=== PATIENT | male | born 1965 | race Caucasian/White ===

== ENCOUNTER 2023-03-13 10:57 | Observation (INO) | payer MEDICARE ==
[~2023-03-13] VITALS: Ht 167.6 cm; Wt 104.3 kg
[2023-03-13 11:15] LABS: BASOPHILS % 0.6 % (0.0-1.0); EOSINOPHILS # (AUTO) 0.3 (0.0-0.4); HEMATOCRIT 40.1 % (38.2-49.6); HEMOGLOBIN 13.9 g/dL (14.0-18.0); LYMPHOCYTES # (AUTO) 1.9 (1.0-3.2); LYMPHOCYTES % 29.7 % (18.0-39.1); MEAN CORPUSCULAR HGB CONC 34.7 g/dL (31-35); MEAN CORPUSCULAR VOLUME 89.5 fL (81-99); MONOCYTES # (AUTO) 0.6 (0.2-0.8); MONOCYTES % 9.6 % (4.4-11.3); NEUTROPHILS # (AUTO) 3.7 (2.1-6.9); NEUTROPHILS % 55.8 % (38.7-80.0); PLATELET COUNT 158 x10e3/uL (140-360); RED BLOOD COUNT 4.48 x10e6/uL (4.3-5.7); RED CELL DISTRIBUTION WIDTH 12.6 % (11.7-14.4)
[2023-03-13 11:32] LABS: INR 0.95; PARTIAL THROMBOPLASTIN TIME 28.1 seconds (23.8-35.5); PROTHROMBIN TIME 13.3 seconds (11.9-14.5)
[2023-03-13 11:37] LABS: ALANINE AMINOTRANSFERASE 44 IU/L (0-55); ALBUMIN 3.7 g/dL (3.5-5.0); ALBUMIN/GLOBULIN RATIO 0.9 (0.8-2.0); ALKALINE PHOSPHATASE 45 IU/L (40-150); ANION GAP 15.5 mmol/L (8-16); BLOOD UREA NITROGEN 22 mg/dL (7-26); BUN/CREATININE RATIO 15 (6-25); CALCIUM 9.5 mg/dL (8.4-10.2); CARBON DIOXIDE 22 mmol/L (22-29); CHLORIDE 105 mmol/L (98-107); CREATINE KINASE 142 IU/L (30-200); CREATININE, SERUM 1.43 mg/dL (0.72-1.25); GLUCOSE 272 mg/dL (74-118); MAGNESIUM 1.2 MG/DL (1.3-2.1); POTASSIUM 4.5 mmol/L (3.5-5.1); SODIUM 138 mmol/L (136-145)
[2023-03-13 11:57] LABS: THYROID STIMULATING HORMONE 2.891 uIU/mL (0.350-4.940)
[2023-03-13] MEDS ORDERED: ONDANSETRON HCL INJ 2MG/ML 2ML 2 MG/ML VIAL IV PRN (13:00)
[2023-03-13 14:11] LABS: CLARITY,URINE CLEAR (CLEAR); COLOR,URINE YELLOW (YELLOW)
[2023-03-13 14:12] LABS: KETONES,URINE NEGATIVE (NEGATIVE); LEUKOCYTE ESTERASE ,URINE NEGATIVE (NEGATIVE); NITRITE,URINE NEGATIVE (NEGATIVE); PROTEIN,URINE DIPSTICK NEGATIVE (NEGATIVE); URINE UROBILINOGEN 0.2 mg/dL (0.2 - 1)
[2023-03-13 14:15] LABS: BACTERIA,URINE RARE /HPF; EPITHELIAL CELLS,URINE RARE /LPF; WBC,URINE (MAN) 0-5 /HPF (0-5)
[2023-03-13 15:50] VITALS: BP 123/67; PULSE 73; RESP 18; TEMP 98.2; O2SAT 97
[2023-03-13 20:00] VITALS: BP 148/76; PULSE 73; RESP 18; TEMP 98.2; O2SAT 97
[2023-03-13 21:00] VITALS: BP 148/76; PULSE 73; RESP 18; TEMP 98.2; O2SAT 97
[2023-03-13] MEDS ORDERED: POLYETHYLENE GLYCOL 3350 17 GM PACK PO PRN (21:45)
[2023-03-13] MEDS ORDERED: SODIUM CHLORIDE 0.9% 500ML 500 ML IV ONE (21:45)
[2023-03-13] MEDS ORDERED: HYDRALAZINE HCL 20 MG/ML VIAL IV PRN (21:45)
[2023-03-13] MEDS ORDERED: TEMAZEPAM 15 MG CAP PO PRN (21:45)
[2023-03-13] MEDS ORDERED: ACETAMINOPHEN 325 MG TAB PO PRN (21:45)
[2023-03-14] VITALS (7 sets, daily range): BP systolic 126–151; BP diastolic 71–82; PULSE 66–82; RESP 17–20; TEMP 97.8–98.3; O2SAT 96–98
[2023-03-14] MEDS: SODIUM CHLORIDE 0.9% 1000ML 1,000 ML IV SCH ×2 (00:49→08:35)
[2023-03-14] MEDS ORDERED: CRESTOR10 MG PO (03:12)
[2023-03-14] MEDS ORDERED: ATENOLOL50 MG PO (03:12)
[2023-03-14] MEDS ORDERED: LISINOPRIL5 MG PO (03:12)
[2023-03-14] MEDS ORDERED: DOXAZOSIN MESYLA2 MG PO (03:12)
[2023-03-14 07:15] LABS: BASOPHILS # (AUTO) 0.1 (0.0-0.1); BASOPHILS % 0.8 % (0.0-1.0); EOSINOPHILS # (AUTO) 0.4 (0.0-0.4); HEMATOCRIT 39.5 % (38.2-49.6); HEMOGLOBIN 13.9 g/dL (14.0-18.0); LYMPHOCYTES # (AUTO) 2.3 (1.0-3.2); LYMPHOCYTES % 32.2 % (18.0-39.1); MEAN CORPUSCULAR HEMOGLOBIN 31.6 pg (28-32); MEAN CORPUSCULAR HGB CONC 35.2 g/dL (31-35); MEAN CORPUSCULAR VOLUME 89.8 fL (81-99); MONOCYTES # (AUTO) 0.7 (0.2-0.8); MONOCYTES % 10.2 % (4.4-11.3); NEUTROPHILS # (AUTO) 3.7 (2.1-6.9); NEUTROPHILS % 51.5 % (38.7-80.0); PLATELET COUNT 149 x10e3/uL (140-360); RED CELL DISTRIBUTION WIDTH 12.8 % (11.7-14.4)
[2023-03-14] MEDS ORDERED: FAMOTIDINE 20 MG TAB PO SCH (07:30)
[2023-03-14 07:33] LABS: CHOL/HDL RATIO 4.7 (3.9-4.7); CHOLESTEROL 132 MD/DL (0-199); HDL CHOLESTEROL 28 MG/DL (40-60); MAGNESIUM 1.2 MG/DL (1.3-2.1); PHOSPHORUS 2.9 MG/DL (2.3-4.7); TRIGLYCERIDES 422 MG/DL (0-149)
[2023-03-14 07:34] LABS: CREATINE KINASE 106 IU/L (30-200)
[2023-03-14 07:35] LABS: ALBUMIN 3.4 g/dL (3.5-5.0); ANION GAP 15.4 mmol/L (8-16); CALCIUM 9.2 mg/dL (8.4-10.2); CREATININE, SERUM 1.38 mg/dL (0.72-1.25); POTASSIUM 4.4 mmol/L (3.5-5.1)
[2023-03-14] MEDS ORDERED: MAGNESIUM SULFATE 2GM/50ML 50 ML IV ONE (08:00)
[2023-03-14] MEDS ORDERED: DOCUSATE SODIUM 100 MG CAP PO SCH (09:00)
[2023-03-14] MEDS ORDERED: MAGNESIUM SULF 1GRAM/DEXTROSE 100 ML IV ONE (10:30)
[2023-03-14 13:07] LABS: CREATINE KINASE 109 IU/L (30-200)
[2023-03-14] MEDS ORDERED: DOXAZOSIN MESYLA8 MG PO (14:05)
[2023-03-14] MEDS ORDERED: EZETIMIBE10 MG PO (14:20)
[2023-03-14] MEDS ORDERED: ASPIRIN81 MG PO (14:20)
[2023-03-14] MEDS ORDERED: MULTI-VITAMIN1 EACH PO (14:20)
[2023-03-14] MEDS ORDERED: OMEPRAZOLE20 MG PO (14:20)
[2023-03-14] MEDS ORDERED: XYZAL5 MG PO (14:20)
[2023-03-14] MEDS ORDERED: FENOFIBRATE200 MG PO (14:20)
[2023-03-14] MEDS ORDERED: HUMULIN R100 UNIT/2 SQ ×2 (14:20)
[2023-03-14] MEDS ORDERED: TRIUMEQ 600-501 EACH PO (14:20)
[2023-03-14] MEDS ORDERED: METFORMIN HCL1000 MG PO (14:20)
[2023-03-14] MEDS ORDERED: FISH OIL 1,2001 EAC1 PO (14:20)
[2023-03-14] MEDS ORDERED: AMLODIPINE BESYL5 MG PO (14:20)
[2023-03-14] MEDS ORDERED: JARDIANCE10 MG PO (14:20)
[2023-03-14] MEDS ORDERED: HUMULIN N100 UNITS/ SQ ×2 (14:20)
[2023-03-14] MEDS ORDERED: NPH, HUMAN INSULIN ISOPHANE 100 UNIT/1 ML 3ML VIAL SQ SCH (16:30)
[2023-03-14] MEDS ORDERED: INSULIN REGULAR, HUMAN 100 UNIT/1 ML SQ SCH (16:30)
[2023-03-14] MEDS ORDERED: METFORMIN HCL 500 MG TAB PO SCH (17:00)
[2023-03-14] MEDS ORDERED: FISH OIL PO SCH (17:00)
[2023-03-14] MEDS ORDERED: [UNRECOGNIZED DRUG - OTHER] PO SCH (17:00)
[2023-03-14] MEDS ORDERED: OMEGA PO SCH (17:00)
[2023-03-14] MEDS ORDERED: FATTY ACIDS PO SCH (17:00)
[2023-03-14] MEDS ORDERED: DOXAZOSIN MESYLATE 2 MG TAB PO SCH (21:00)
[2023-03-14] MEDS ORDERED: LORATADINE 10 MG TAB PO SCH (21:00)
[2023-03-14] MEDS ORDERED: SIMVASTATIN 20 MG TAB PO SCH (21:00)
[2023-03-14] MEDS ORDERED: LISINOPRIL 2.5 MG TAB PO SCH (21:00)
[2023-03-15] MEDS ORDERED: NPH, HUMAN INSULIN ISOPHANE 100 UNIT/1 ML 3ML VIAL SQ SCH (07:30)
[2023-03-15] MEDS ORDERED: INSULIN REGULAR, HUMAN 100 UNIT/1 ML SQ SCH (07:30)
[2023-03-15] MEDS ORDERED: MULTIVITAMINS/MINERALS TAB PO SCH (09:00)
[2023-03-15] MEDS ORDERED: DOLUTEGRAVIR PO SCH (09:00)
[2023-03-15] MEDS ORDERED: LAMIVUDI PO SCH (09:00)
[2023-03-15] MEDS ORDERED: EZETIMIBE 10 MG TAB PO SCH (09:00)
[2023-03-15] MEDS ORDERED: ABACAVIR PO SCH (09:00)
[2023-03-15] MEDS ORDERED: AMLODIPINE BESYLATE 5 MG TAB PO SCH (09:00)
[2023-03-15] MEDS ORDERED: EMPAGLIFLOZIN 10 MG TABLET PO SCH (09:00)
[2023-03-15] MEDS ORDERED: FENOFIBRATE 200 MG PO SCH (09:00)
[2023-03-15] MEDS ORDERED: ASPIRIN 81 MG CHEW TAB PO SCH (09:00)
[2023-03-15] MEDS ORDERED: ATENOLOL 50 MG TAB PO SCH (09:00)
[2023-03-15] MEDS ORDERED: PANTOPRAZOLE SOD 40 MG TABEC PO SCH (09:00)
== END 2023-03-14 16:49 | disposition home or self-care (01) ==
LOC: ER 11:03 → ERHOLD 13:06 → MED/SURG3 16:12
PROVIDERS: ADMIT Internal Medicine; ATTEND Internal Medicine
DX: R07.9 Chest pain, unspecified (principal); E86.0 Dehydration; E11.65 Type 2 diabetes mellitus with hyperglycemia; Z79.4 Long term (current) use of insulin; Z79.84 Long term (current) use of oral hypoglycemic drugs; E83.42 Hypomagnesemia; I10 Essential (primary) hypertension; E78.1 Pure hyperglyceridemia; Z21 Asymptomatic human immunodeficiency virus [HIV] infection status; K76.0 Fatty (change of) liver, not elsewhere classified; Z79.82 Long term (current) use of aspirin; Z79.899 Other long term (current) drug therapy
CPT/HCPCS: 36415 ×2; 71045; 80053 ×2; 80061; 81001; 82550 ×2; 82948 ×2; 83036; 83735 ×2; 83880; 84100; 84443; 84484 ×2; 85025 ×2; 85610; 85730; 93005; 94799; 99284; G0378 ×2; J3475 ×2; J7030; U0002